=== PATIENT | male | born 1980 | race Caucasian/White ===

== ENCOUNTER → 2021-04-12 | Outpatient (CLI) | payer OTHER ==
--- NOTE | 2021-04-12 08:53 | CT ---
EXAMINATION TYPE: CT sinus wo con DATE OF EXAM: 04/12/2021 COMPARISON: None HISTORY: 41-year-old male J32.9, Chronic sinusitis, polyps CT DLP: 686.5 mGycm Automated exposure control for dose reduction was used. TECHNIQUE: Noncontrast axial views of the paranasal sinuses were obtained. Coronal reconstructions pe rformed. FINDINGS: PARANASAL SINUSES: Moderate to severe mucosal thickening throughout the ethmoid air cells. Moderate mucosal thickening right frontal sinus. Mild mucosal thickening bilateral sphenoid sinuses. Moderate mucosal thickening throughout the bilateral maxillary sinuses but with multiple large polyps or mucosal retention cysts measuring up to 2.3 cm. There is no air-fluid level. Reactive selvin- osteogenesis is not seen. There is no destruction of the osseous joseph of the paranasal sinuses. THE NASAL CAVITY: There is opacification which extends to the bilateral osteomeatal complexes. Marked rightward nasal septal deviation anteriorly. Extensive opacification throughout the bilateral nasal cavity suggesting underlying polyposis, larges t in the left nasal cavity may measure up to 6.0 cm AP by 2.8 cm craniocaudal by 1.2 cm wide. The orbits shape and no gross abnormal. Possible enlargement/fullness of the pituitary gland, axial image 34 and coronal image 46. This can b e evaluated with brain and pituitary MRI. Partially visualized mastoid air cells and middle ear cavities appear clear. Reformatted images confirm above findings. IMPRESSION: 1. Moderate to severe mucosal thickening throughout the ethmoid air cells and moderate within the rem aining paranasal sinuses with underlying sinonasal polyposis. Polyp in the left nasal cavity may dio ure up to 6.0 x 2.8 cm. 2. No reactive selvin osteogenesis or air-fluid levels. 3. Marked rightward anterior nasal septal deviation. 4. There appears to be enlargement/fullness of the pituitary gland. Brain and pituitary MRI can furth er evaluate.
== END | disposition home or self-care (01) ==
LOC: RADCTMAIN 07:01
PROVIDERS: ATTEND Otolaryngology
DX: J32.9 Chronic sinusitis, unspecified (principal); J34.2 Deviated nasal septum
CPT/HCPCS: 70486

== ENCOUNTER → 2021-05-03 | Outpatient (CLI) | payer OTHER ==
[2021-05-03 20:52] LABS: HCT 29.2 % (39.6-50.0); HGB 7.6 g/dL (13.0-17.0); MCV 84.6 fL (80.0-97.0); Mean Platelet Volume 10.6 fL (9.5-12.2); Platelet Count 196 X 10*3/uL (140-440); RBC 3.45 X 10*6/uL (4.40-5.60); RDW 18.8 % (11.5-14.5)
[2021-05-04 00:52] LABS: African American GFR (CKD) 136.8 (60.0-200.0); Albumin 4.6 g/dL (3.80-4.90); Albumin/Globulin Ratio 2.3 (1.60-3.17); Anion Gap 10.1 mmol/L (4.00-12.00); BUN/Creat Ratio 17.14 Ratio (12.00-20.00); Calcium 9.4 mg/dL (8.7-10.3); Carbon Dioxide 23.9 mmol/L (21.6-31.8); Potassium 4.2 mmol/L (3.5-5.5); Total Bilirubin 0.5 mg/dL (0.3-1.2); Total Protein 6.6 g/dL (6.2-8.2)
== END | disposition home or self-care (01) ==
LOC: LABWHC1 14:09
PROVIDERS: ATTEND Surgery
DX: K92.2 Gastrointestinal hemorrhage, unspecified (principal)
CPT/HCPCS: 36415; 80053; 85027

== ENCOUNTER 2021-05-06 06:35 | Day surgery (SDC) | payer OTHER ==
[2021-04-28 16:13] VITALS: BMI 32.5
[~2021-05-06 06:35] MED LIST: ACETAMINOPHEN TAB 500 MG TAB PO PRN; DEXAMETHASONE SOD PHOSPHATE 4 MG/ML 1 ML VIAL IV ONE; HEPARIN SODIUM,PORCINE/PF 5,000 UNIT/0.5 ML SYRINGE SQ PRN; LACTATED RINGERS 1,000 ML IV SCH; MIDAZOLAM 2 MG/2 ML VIAL IV PRN; ONDANSETRON 4 MG/2 ML VIAL IVP ONE; Pre Op ABX Message 1 EACH MISC MISCELLANE ONE; SCOPOLAMINE 1.5MG/72HR PATCH TRANSDERM ONE
[2021-05-06] MEDS ORDERED: LIDOCAINE 1% (10MG/ML) FOR IV START INTRADERMA ONE (07:23)
[2021-05-06] MEDS ORDERED: LIDOCAINE 1% INJ 10MG/ML (20 ML MDV) ONE (08:05)
[2021-05-06] MEDS ORDERED: KETAMINE 10 MG/ML 20 ML VIAL ONE (08:05)
[2021-05-06] MEDS ORDERED: KETOROLAC 15 MG/ML 1 ML VIAL ONE (08:05)
[2021-05-06] MEDS ORDERED: HYDROmorphone (PF) 1 MG/ML ONE (08:05)
[2021-05-06] MEDS ORDERED: SUCCINYLCHOLINE CHLORIDE 100 MG/5 ML SYR IV ONE (08:05)
[2021-05-06] MEDS ORDERED: PROPOFOL 10 MG/ML 20 ML VIAL IV ONE (08:05)
[2021-05-06] MEDS ORDERED: fentaNYL (PF) 50 MCG/ML 2 ML AMP ONE (08:05)
[2021-05-06] MEDS ORDERED: SODIUM CHLORIDE 0.9% 50 ML with ceFAZolin 2,000 MG IV ONE ×2 (08:24)
[2021-05-06] MEDS ORDERED: LIDOCAINE 1%-EPI 1:100,000 20 ML VIAL SUBMUCOSAL ONE ×3 (08:31→08:48)
[2021-05-06] MEDS ORDERED: GELATIN SPONGE,ABSORB (LARGE) 1 EACH SPONGE TOPICAL ONE (08:49)
--- NOTE | 2021-05-06 09:10 | P.GSHP ---
History of Present Illness H&P Date: 05/06/21 Chief Complaint: Internal and external hemorrhoids This a 41-year-old male who presents today for hemorrhagic. Patient has significant internal and external hemorrhoids. His initial chronic bleeding. Past Medical History Additional Past Medical History / Comment(s): NASAL POLYPS-SEEING DR. RODRIGUEZ. SEASONAL ALLERGIES. HEMORRHOIDS. LOW HEMOGLOBIN-PT WAS INPT AT [facility] 04/04-04/06 FOR HEMOGLOBIN 4.5-HAD TRANSFUSIONS AND HGB WENT UP TO 8.0 (PER ) History of Any Multi-Drug Resistant Organisms: None Reported Additional Past Surgical History / Comment(s): COLONOSCOPY X 2 Past Anesthesia/Blood Transfusion Reactions: No Reported Reaction Additional Past Anesthesia/Blood Transfusion Reaction / Comment(s): RECENT TRANS FUSION AT [facility] WITH NO PROBLEMS Smoking Status: Current every day smoker - Past Family History Mother Family Medical History: No Reported History Medications and Allergies Home Medications Medication Instructions Recorded Confirmed Type Cetirizine HCl [Zyrtec] 10 mg PO DAILY 04/28/21 05/06/21 History Ferrous Sulfate [Feosol] 325 mg PO DAILY 04/28/21 05/06/21 History Multivitamins, Thera [Multivitamin 1 tab PO DAILY 04/28/21 04/28/21 History (formulary)] [place]-3 Fatty Acids/Fish Oil [Fish 1 each PO DAILY 04/28/21 04/28/21 History Oil 1,000 mg Softgel] Allergies Allergy/AdvReac Type Severity Reaction Status Date / Time No Known Allergies Allergy Verified 04/28/21 15:59 Surgical - Exam Vital Signs Temp Pulse Resp BP Pulse Ox 98.9 F 95 18 144/85 100 05/06/21 06:56 05/06/21 06:56 05/06/21 06:56 05/06/21 06:56 05/06/21 06:56 - General well developed, well nourished, no distress - Eyes PERRL - ENT normal pinna - Neck no masses - Respiratory normal expansion - Cardiovascular Rhythm: regular - Abdomen Abdomen: soft, non tender - Rectum Large internal and external hemorrhoids Assessment and Plan Assessment: Internal Hemorrhoids. We'll perform hemorrhoidectomy.
--- NOTE | 2021-05-06 09:12 | P.OP ---
Date of Procedure: 05/06/21 Preoperative Diagnosis: Internal and external hemorrhoids Postoperative Diagnosis: Internal and external hemorrhoids Procedure(s) Performed: Internal and external hemorrhoidectomy Anesthesia: MAC Surgeon: London Pedroza Estimated Blood Loss (ml): 20 Pathology: other (Internal and external hemorrhoids) Condition: stable Disposition: PACU Description of Procedure: The patient's placed on the operative table in the prone position. He received general endotracheal tube anesthesia. His anus was prepped and draped in sterile fashion. Patient had very large internal/external hemorrhoids. The bivalved anal retractors placed anus. The left lateral hemorrhoidal column was grasped. Allis clamps and using Harmonic scissors the hemorrhoidal column was dissected free and sent to pathology. The mucosal layer was then reapproximated using 3-0 Vicryl suture. The right anterior and right posterior hemorrhoid column was then dissected in identical fashion. There is no bleeding seen. Piece of Gelfoam was placed patient anus. The anus was then blocked with 1% lidocaine. Patient top she will was sent to recovery room in stable condition.
[2021-05-06 09:13] VITALS: TEMP 98.5
[2021-05-06] MEDS: HYDROmorphone 0.5 MG/0.5 ML SYRINGE IVP PRN ×2 (09:15→09:33)
[2021-05-06] MEDS ORDERED: LACTATED RINGERS 1,000 ML IV ONE (09:30)
[2021-05-06 09:54] VITALS: RESP 16
[2021-05-06 10:18] VITALS: PULSE 99
[2021-05-06 11:03] VITALS: BP 161/78
== END 2021-05-06 11:25 | disposition home or self-care (01) ==
LOC: OR 06:35
PROVIDERS: ATTEND Surgery
DX: K64.4 Residual hemorrhoidal skin tags (principal); K64.8 Other hemorrhoids; F17.200 Nicotine dependence, unspecified, uncomplicated; F12.90 Cannabis use, unspecified, uncomplicated
CPT/HCPCS: 46260; 88304; J1100; J2405; J0690; J2001; J3010; J1170 ×2; J1885; J0330; J2704; J1644

== ENCOUNTER → 2021-12-21 | Outpatient (CLI) | payer OTHER ==
[2021-12-21 14:54] LABS: INR 0.94 (0.90-1.11); Prothrombin Time 10.6 sec (9.9-11.9)
[2021-12-21 15:16] LABS: Basophils # (A) 0.03 X 10*3/uL (0.00-0.10); Basophils % (A) 0.8 %; Eosinophils # (A) 0.15 X 10*3/uL (0.04-0.35); Eosinophils % (A) 3.9 %; HCT 42.8 % (39.6-50.0); HGB 13.2 g/dL (13.0-17.0); Immature Grans, Automated 0 %; Lymphocytes # (A) 1.42 X 10*3/uL (0.90-5.00); Lymphocytes % (A) 37.2 %; MCH 26.5 pg (27.0-32.0); MCHC 30.8 g/dL (32.0-37.0); MCV 85.9 fL (80.0-97.0); Mean Platelet Volume 10.4 fL (9.5-12.2); Monocytes # (A) 0.33 X 10*3/uL (0.20-1.00); Monocytes % (A) 8.6 %; NRBC Per 100 WBC 0 /100 WBCS (0.0-0.0); Neutrophils # (A) 1.89 X 10*3/uL (1.80-7.70); Neutrophils % (A) 49.5 %; Platelet Count 213 X 10*3/uL (140-440); RBC 4.98 X 10*6/uL (4.40-5.60); RDW 18.9 % (11.5-14.5); WBC 3.82 X 10*3/uL (4.50-10.00)
== END | disposition home or self-care (01) ==
LOC: LABWHC1 08:03
PROVIDERS: ATTEND Otolaryngology
DX: D64.9 Anemia, unspecified (principal); R53.83 Other fatigue
CPT/HCPCS: 36415; 85025; 85610

== ENCOUNTER 2022-02-09 06:15 | Day surgery (SDC) | payer OTHER ==
[2022-02-08 08:53] VITALS: BMI 32.3
[~2022-02-09 06:15] MED LIST changes: -ACETAMINOPHEN TAB 500 MG TAB PO PRN; -DEXAMETHASONE SOD PHOSPHATE 4 MG/ML 1 ML VIAL IV ONE; +DEXAMETHASONE SOD PHOSPHATE 4 MG/ML 1 ML VIAL IV PRN; +FAMOTIDINE 20 MG/2 ML VIAL IV PRN; -HEPARIN SODIUM,PORCINE/PF 5,000 UNIT/0.5 ML SYRINGE SQ PRN; -LACTATED RINGERS 1,000 ML IV SCH; -MIDAZOLAM 2 MG/2 ML VIAL IV PRN; -ONDANSETRON 4 MG/2 ML VIAL IVP ONE; -Pre Op ABX Message 1 EACH MISC MISCELLANE ONE; -SCOPOLAMINE 1.5MG/72HR PATCH TRANSDERM ONE; +metroNIDAZOLE-NS PMX 500 MG in SALINE 1 100ML.BAG IVPB PRN
[2022-02-09] MEDS ORDERED: ONDANSETRON 4 MG/2 ML VIAL IVP ONE (06:32)
[2022-02-09] MEDS ORDERED: DEXAMETHASONE SOD PHOSPHATE 4 MG/ML 1 ML VIAL IV ONE (06:32)
[2022-02-09] MEDS ORDERED: ONDANSETRON 4 MG/2 ML VIAL ONE (06:35)
[2022-02-09 06:55] VITALS: TEMP 98.8
[2022-02-09 07:03] LABS: Glucose,Whole Blood 129 mg/dL (70-110)
[2022-02-09] MEDS: OXYMETAZOLINE 0.05% NASL SPRAY 1 SPRAY BOTTLE EA NOSTRIL PRN ×5 (07:04→07:25)
[2022-02-09] MEDS ORDERED: LIDOCAINE 1% (10MG/ML) FOR IV START INTRADERMA ONE (07:08)
[2022-02-09] MEDS: LACTATED RINGERS 1,000 ML IV SCH ×2 (07:08→07:27)
[2022-02-09] MEDS ORDERED: ROCURONIUM 10 MG/ML (5 ML VIAL) IV ONE (07:23)
[2022-02-09] MEDS ORDERED: GLYCOPYRROLATE 0.2 MG/ML 2 ML VIAL ONE (07:23)
[2022-02-09] MEDS ORDERED: LIDOCAINE 2% INJ 20 MG/ML (2 ML VIAL) ONE (07:23)
[2022-02-09] MEDS ORDERED: HYDROCORTISONE SUCCINATE 100 MG/2 ML VIAL IVP ONE (07:23)
[2022-02-09] MEDS ORDERED: PROPOFOL 10 MG/ML 20 ML VIAL IV ONE (07:23)
[2022-02-09] MEDS ORDERED: NEOSTIGMINE 1 MG/ML 10 ML VIAL ONE (07:23)
[2022-02-09] MEDS ORDERED: HYDROmorphone (PF) 1 MG/ML ONE (07:23)
[2022-02-09] MEDS ORDERED: diphenhydrAMINE 50 MG/ML 1 ML VIAL ONE (07:23)
[2022-02-09] MEDS ORDERED: LABETALOL 5 MG/ML VIAL MDV ONE (07:23)
[2022-02-09] MEDS ORDERED: MIDAZOLAM 2 MG/2 ML VIAL ONE (07:23)
[2022-02-09] MEDS ORDERED: SUCCINYLCHOLINE CHLORIDE 100 MG/5 ML SYR IV ONE (07:23)
[2022-02-09] MEDS ORDERED: fentaNYL (PF) 50 MCG/ML 2 ML AMP ONE (07:23)
[2022-02-09] MEDS ORDERED: BUPIVACAIN-EPI 0.5%-1:200,000 30 ML VIAL SQ ONE ×2 (07:59)
[2022-02-09] MEDS ORDERED: LIDOCAINE 1%-EPI 1:100,000 20 ML VIAL SQ ONE (07:59)
[2022-02-09] MEDS ORDERED: BACITRACIN ZINC 500 UNIT/GM OINT 28.4 GM TUBE TOPICAL ONE (07:59)
[2022-02-09] MEDS ORDERED: EPINEPHrine 1 MG/ML (MDV) 30 ML VIAL TOPICAL ONE (08:00)
[2022-02-09] MEDS ORDERED: FLUORESCEIN STRIPS 1 MG STRIP MISCELLANE ONE (08:00)
--- NOTE | 2022-02-09 09:27 | P.OP ---
Date of Procedure: 02/09/22 Preoperative Diagnosis: Chronic pansinusitis with massive sinonasal polyposis Deviated nasal septum Inferior turbinate hypertrophy Postoperative Diagnosis: Same Procedure(s) Performed: Functional endoscopic sinus surgery of all sinuses with polypectomy Septoplasty Bilateral submucosal resection of the inferior nasal turbinates with outfracturing compression Anesthesia: ZELDA Surgeon: Josh Escalera Estimated Blood Loss (ml): 20 Pathology: other (Sinonasal) Condition: stable Disposition: PACU Indications for Procedure: This patient has had many years of total nasal obstruction and sinus infectious issues. He has nasal congestion and is a chronic mouth breather with discolored drainage headaches facial pain anosmia etc. etc. He has failed medical therapy and was found to have massive intranasal and sinonasal polyps. They completely fill the nasal airway and on the left side are almost coming out of his nose. Sinus surgery was requested for the patient. All risks, benefits and alternative therapies were discussed in detail. Consent was obtained and all qu estions were answered. Operative Findings: Massive sinonasal polyposis. The left-sided nasal polyps were almost coming out of his nose. As the polyps to the maxillary ethmoid frontal and sphenoid sinuses. Diseased tissue seen everywhere and all diseased tissue was removed. Septum was also severely deviated to the left. Description of Procedure: This patient was taken to the operative room and placed in the supine position. A general inhalation anesthetic was administered to the patient by the department of anesthesia with a functioning IV line in place. The patient was monitored throughout the entire case by the department of anesthesia. The eyes were taped shut for protection. The patient was placed in a slight reverse Trendelenburg position. The patient had previously utilize Afrin nasal spray preoperatively. The nose was evaluated and the septum lateral nasal wall and inferior turbinates were injected with lidocaine 1% with epinephrine 1 100,000 bilaterally. Approximately 10 minutes were allowed wait for full vasoconstrictive effects to take place. At this point a caudal incision was made over the caudal portion of the left septum down to the mucoperichondrium. A mucoperichondrial flap was elevated on the left side and dissection was carried with use of tunnels posteriorly. We then made a crossover incision through the cartilage to the contralateral side and for the mucoperichondrial flap development was performed to the extent of visualization on the contralateral side. After the cartilage was freed with use of several crosshatching incisions and removal of some redundant strips of septal cartilage, the septum was straightened and placed back in the midline. The septum was sutured fixated to the ovarian groove. Excellent straightening occurred and the septum was visibly straight. Incision was closed with a 40 rapid Vicryl. We utilized a running nonlocking fashion for closure of the incision. A quilting stitch was used to reapproximate the septal flaps with use of a 40 rapid Vicryl. We then entered the nose with a 0 and 30 Cole nga endoscope. Previous to this we did inject the lateral nasal wall and middle turbinate and uncinate process with lidocaine 1% with epinephrine 1 100,000. Approximately 10 minutes were allowed wait for full vasoconstrictive effects to take place. Intranasal polyps were noted. They were noted bilaterally. The intranasal polyps were removed with use of a microdebrider. Polyps were massive.. With use of a microdebrider and a pediatric backbiter, we took down the uncinate process bilaterally. We then opened the maxillary sinuses bilaterally. We utilized a microdebrider for this and entered the maxillary sinuses and removed diseased tissue and polypoid tissue. This was done bilaterally. After the maxillary sinuses were opened and the diseased tissue and polyps were removed we entered the ethmoid bulla and with use of a microdebrider and up-biting Liat, we remove the anterior septations and remove diseased tissue from the anterior ethmoids with direct visualization. We then followed the fovea frontalis through the basal lamella and into the posterior ethmoid air cells and did a total ethmoidectomy with removal of polypoid material. Once the ethmoids cells were all taken down we then entered the sphenoid sinus medially and inferiorly underneath the inferior attachment of the superior turbinate. The sphenoid sinus was opened entered and diseased tissue and polyps were removed bilaterally. This was done with a microdebrider and Blakesley. We then entered the frontal sinuses with a giraffe and up-biting Amandaley entered on the agar nasi cells. We open the frontal sinuses and removed sinus tissue and polypoid tissue that was diseased. We explored the frontal sinuses bilaterally. To summarize all sinuses were open all sinuses were explored and we remove diseased tissue and polyps from the sphenoid maxillary and frontal sinuses. Polyps were removed from the nose. Ethmoid sinuses were opened totally. xerogel and Nasal pore was inserted and minimal bleeding was encountered. We reinspected the skull base there is no signs of any orbital penetration or signs of any intracranial penetration. The sugical site was reinspected after the nasal pore was placed and no bleeding was seen. Attention was then paid to the inferior turbinates. The bilateral inferior turbinates were hypertrophic and obstructive. We entered the anterior portion of the inferior turbinates with use of a microdebrider. We remove bone and submucosal elements with use of a microdebrider bilaterally. The inferior turbinates underwent a submucosal resection with removal of submucosal tissue and bone. We obtained a much better and normal in size for breathing. The inferior turbinates were then outfractured and compressed with a Shopow nasal elevator. Excellent airway was obtained and was symmetric bilaterally. No bleeding was encountered. Intranasal splints were inserted and fixated at the end of the case. We utilized Hill nasal splints. There will be removed and the patient returns to the office.
[2022-02-09] MEDS ORDERED: hydrALAZINE HCL 20 MG/ML 1 ML VIAL IVP ONE (09:28)
[2022-02-09] MEDS: HYDROmorphone 0.5 MG/0.5 ML SYRINGE IVP PRN ×2 (09:45→10:02)
[2022-02-09 09:52] VITALS: RESP 16
[2022-02-09] MEDS ORDERED: LACTATED RINGERS 1,000 ML IV ONE (09:55)
[2022-02-09] MEDS ORDERED: oxyCODONE-APAP 5-325MG 1 EACH TAB ONE (10:20)
[2022-02-09] MEDS ORDERED: oxyCODONE-APAP 5-325MG 1 EACH TAB PO ONE (10:21)
[2022-02-09] MEDS ORDERED: hydrALAZINE HCL 20 MG/ML 1 ML VIAL ONE (10:45)
[2022-02-09] MEDS ORDERED: hydrALAZINE HCL 20 MG/ML 1 ML VIAL IV ONE ×2 (10:46→11:09)
[2022-02-09 11:33] VITALS: BP 147/90; PULSE 80
== END 2022-02-09 12:00 | disposition home or self-care (01) ==
LOC: OR 06:15
PROVIDERS: ATTEND Otolaryngology
DX: J32.4 Chronic pansinusitis (principal); J34.2 Deviated nasal septum; J34.3 Hypertrophy of nasal turbinates; J33.8 Other polyp of sinus; F17.210 Nicotine dependence, cigarettes, uncomplicated; Z79.899 Other long term (current) drug therapy; Z98.890 Other specified postprocedural states; Z82.3 Family history of stroke; Z82.49 Family history of ischemic heart disease and other diseases of the circulatory system; Z81.8 Family history of other mental and behavioral disorders; Z81.1 Family history of alcohol abuse and dependence; Z83.3 Family history of diabetes mellitus; Z83.42 Family history of familial hypercholesterolemia
CPT/HCPCS: 88305; 88300; 30520; 30140; 31259; 31276; 31267; C1726; J0171; J2250; J0360; J1200; J2710; J1720; J0690; J2405; J3010; J1170 ×2; J0330; J2704; J2001

== ENCOUNTER → 2022-03-08 | Outpatient (CLI) | payer OTHER ==
--- NOTE | 2022-03-09 08:08 | MR ---
EXAMINATION TYPE: MR pituitary wo/w con DATE OF EXAM: 03/08/2022 COMPARISON: Sinus CT April 12, 2021 HISTORY: Abnormal CT. TECHNIQUE: Multiplanar, multisequence images of the brain and brainstem is performed without and with IV contras t, utilizing 9.5 mL intravenous Gadavist . Pituitary gland protocol. FINDINGS: Confirmation of enlarged mass in the sella turcica bulging the sella turcica with oval shap e and well-defined margins along with convex superior margin measuring up to 1.8 cm AP diameter sagit julee image 18 x 1.9 cm transversely coronal image 10 x 1.5 cm craniocaudal dimension same image. There is is local mass effect bulging into the superior sphenoid sinus. It is overall isointense on T1-jenn ghted and slightly hyperintense on T2-weighted images to lemus matter of the brain. Pituitary stalk sh ows normal enhancement but is deviated to the left of midline. Sella turcica lesion shows no abnormal enhancement. The lesion abuts the right carotid siphon coronal image 9. Optic chiasm is not effaced. Midline structures otherwise demonstrate normal morphology. The craniocervical junction appears with in normal limits. No gross hydrocephalus. Known nasal polyposis is partially imaged. 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 Differential would favor something like a Rathke cleft cyst. Advise neurosurgical referral.
== END | disposition home or self-care (01) ==
LOC: RADMRIMAIN 18:04
PROVIDERS: ATTEND Otolaryngology
DX: R93.0 Abnormal findings on diagnostic imaging of skull and head, not elsewhere classified (principal); E22.0 Acromegaly and pituitary gigantism
CPT/HCPCS: 70553; A9585